=== PATIENT | male | born 1960 | race Caucasian/White ===

== ENCOUNTER 2022-04-05 09:57 | Inpatient (IN) ==
[2022-04-05] MEDS ORDERED: ACETAMINOPHEN 325 MG TABLET PO ONE (10:21)
[2022-04-05] MEDS ORDERED: ALBUTEROL/IPRATROPIUM 3 ML NEB RESP TX STA (10:22)
[2022-04-05] MEDS ORDERED: FUROSEMIDE 40 MG/4 ML VIAL IV STA (10:22)
[2022-04-05 10:50] LABS: Basophils # 0.1 10*3/uL (0.0-0.2); Basophils % 0.7 % (0.0-0.8); Eosinophils % 0.1 % (0.00-10.9); Hematocrit 30.1 VOL% (42.0-52.0); Hemoglobin 10.4 GM/DL (14.0-18.0); Immature Granulocytes % 1.2 %; Immature Granulocytes Absolute 0.16 #; Lymphocytes # 0.3 10*3/uL (1.4-4.0); Lymphocytes % 2.5 % (21.2-54.2); Mean Corpuscular HGB Conc 34.6 GM/DL (32-36); Mean Corpuscular Volume 70.2 FL (87-102); Mean Platelet Volume 9.5 FL (9.6-12.0); Monocytes # 0.6 10*3/uL (0.11-0.8); Monocytes % 4.7 % (1.7-12.7); Neutrophils % 90.8 % (38.7-73.9); Platelet Count 162 T/CUMM (130-400); Red Blood Count 4.29 MC/CUMM (3.8-5.5); Red Cell Distribution Width 16.6 % (9.3-17.3); White Blood Count 13.64 T/CUMM (4-12)
[2022-04-05 10:59] LABS: INR 1.2
[2022-04-05] MEDS ORDERED: cefTRIAXone 1,000 MG in SODIUM CHLORIDE 0.9% 100 ML IV STA (11:20)
[2022-04-05] MEDS ORDERED: ASPIRIN 325 MG TABLET PO STA (11:20)
[2022-04-05] MEDS ORDERED: AZITHROMYCIN INJ 500 MG in SODIUM CHLORIDE 0.9% 250 ML IV STA (11:20)
[2022-04-05 11:23] LABS: Albumin 2.4 G/DL (3.4-5.0); Bilirubin,Total 1.6 MG/DL (0.20-1.00); Calcium 8.2 MG/DL (8.5-10.1); Osmolality,Calculated 215.4 MOS/KG (273-304); Potassium 3.9 MMOL/L (3.5-5.1); Total Protein 6.8 G/DL (6.4-8.2)
[2022-04-05] MEDS ORDERED: SODIUM CHLORIDE 3% INJ 100 ML IV ONE (11:35)
[2022-04-05 11:43] LABS: Mucus,Urine Occasional /LPF (Occasional); RBC,Urine 1 /HPF (0-4)
[2022-04-05 11:44] LABS: Bilirubin,Urine Negative (Negative); Blood, Urine Large mg/dL (Negative); Glucose,Urine (UA) Negative (Negative); Ketones,Urine Trace mg/dL (Negative); Nitrite,Urine Negative (Negative); Protein,Urine 30 mg/dL (Negative); Urine Appearance Clear (Clear); Urine Color Yellow (Yellow); Urine Urobilinogen 0.2 eU/dL (<2.0); Urine pH 5.5 (4.5-8.0)
[2022-04-05 11:56] LABS: Arterial Base Excess iSTAT 3 MMOL/L (-2.5-2.5); Arterial Bicarbonate iSTAT 25.1 MMOL/L (20-26); Arterial O2 Saturation iSTAT 95 % (95-100); Arterial PCO2 iSTAT 30 MM HG (35-48); Arterial PO2 iSTAT 63 MM HG (80-95); Arterial Total CO2 iSTAT 26 MMO/L (23-27); Arterial pH iSTAT 7.539 (7.35-7.45)
[2022-04-05 12:06] LABS: Barbiturates Screen,Urine Negative (Negative); Benzodiazepines Screen,Urine Negative (Negative); Cannabinoid Screen,Urine Negative (Negative); Opiate Screen,Urine Negative (Negative); Phencyclidine Screen,Urine Negative (Negative)
[2022-04-05] MEDS ORDERED: ONDANSETRON 4 MG/2 ML VIAL IV PRN (12:11)
[2022-04-05] MEDS ORDERED: ALBUTEROL 2.5 MG/3 ML NEB RESP TX PRN (12:11)
[2022-04-05] MEDS ORDERED: ACETAMINOPHEN 325 MG TABLET PO PRN (12:11)
[2022-04-05] MEDS ORDERED: chlordiazePOXIDE 25 MG CAPSULE PO PRN (12:19)
[2022-04-05] MEDS ORDERED: THIAMINE 200 MG/2 ML VIAL IV SCH (12:30)
[2022-04-05 12:53] LABS: Free T4 (Free Thyroxine) 2.02 NG/DL (0.76-1.46); Thyroid Stimulating Hormone 0.379 uIU/ml (0.358-3.74)
[2022-04-05] MEDS: cefTRIAXone 1,000 MG in SODIUM CHLORIDE 0.9% 100 ML IV SCH (13:03)
[2022-04-05] MEDS: ENOXAPARIN 40 MG/0.4 ML SYRINGE SUBCUT SCH (13:13)
[2022-04-05] MEDS: ALBUTEROL/IPRATROPIUM 3 ML NEB RESP TX SCH ×2 (13:58→20:03)
[2022-04-05] MEDS ORDERED: MAGNESIUM SULF RIDER 4 GM/100 ML PREMIX IV PRN (14:51)
[2022-04-05] MEDS ORDERED: MAGNESIUM SULF RIDER 2 GM/50 ML PREMIX IV PRN (14:51)
[2022-04-05 14:58] LABS: Calcium 8.1 MG/DL (8.5-10.1); Potassium 3.5 MMOL/L (3.5-5.1)
[2022-04-05] MEDS: THIAMINE INJ 400 MG in SODIUM CHLORIDE 0.9% 100 ML IV SCH (15:22)
[2022-04-05] MEDS: FUROSEMIDE 40 MG/4 ML VIAL IV SCH (18:33)
[2022-04-05 19:00] LABS: Calcium 7.6 MG/DL (8.5-10.1); Potassium 3.8 MMOL/L (3.5-5.1)
[2022-04-05] MEDS: FOLIC ACID 1 MG TABLET PO SCH (20:47)
[2022-04-05 23:06] LABS: Osmolality,Calculated 236.9 MOS/KG (273-304); Potassium 2.9 MMOL/L (3.5-5.1)
[2022-04-05] MEDS ORDERED: POTASSIUM CHLORIDE 20 MEQ TABLET PO ONE (23:20)
[2022-04-06] MEDS: ALBUTEROL/IPRATROPIUM 3 ML NEB RESP TX SCH ×4 (00:24→19:48)
[2022-04-06] MEDS: POTASSIUM CHLORIDE 20 MEQ TABLET PO PRN ×5 (02:15→23:05)
[2022-04-06 02:32] LABS: Basophils % 0.1 % (0.0-0.8); Eosinophils % 0.1 % (0.00-10.9); Hematocrit 31.7 VOL% (42.0-52.0); Hemoglobin 10.8 GM/DL (14.0-18.0); Immature Granulocytes % 3.3 %; Immature Granulocytes Absolute 0.51 #; Lymphocytes # 0.4 10*3/uL (1.4-4.0); Lymphocytes % 2.7 % (21.2-54.2); Mean Corpuscular HGB Conc 34.1 GM/DL (32-36); Mean Corpuscular Volume 70.9 FL (87-102); Mean Platelet Volume 9.5 FL (9.6-12.0); Monocytes # 0.6 10*3/uL (0.11-0.8); Monocytes % 3.7 % (1.7-12.7); Neutrophils % 90.1 % (38.7-73.9); Platelet Count 161 T/CUMM (130-400); Red Blood Count 4.47 MC/CUMM (3.8-5.5); Red Cell Distribution Width 16.6 % (9.3-17.3); White Blood Count 15.46 T/CUMM (4-12)
[2022-04-06 02:55] LABS: Albumin 2.4 G/DL (3.4-5.0); Bilirubin,Total 1.2 MG/DL (0.20-1.00); Calcium 8.4 MG/DL (8.5-10.1); Osmolality,Calculated 233.2 MOS/KG (273-304); Potassium 2.9 MMOL/L (3.5-5.1); Total Protein 6.8 G/DL (6.4-8.2)
[2022-04-06 03:03] LABS: % Iron Saturation 4.8 % (18-50); Ferritin 352.7 ng/mL (26-388)
[2022-04-06 03:33] LABS: Hepatitis B Core IgM Quant 0.07 Index; Hepatitis B Surface Ag Quant 0.12 Index; Hepatitis B Surface Ag Result Non-Reactive (NonReactive); Hepatitis C Virus Ab Quant 0.24 Index; Hepatitis C Virus Ab Result Non-Reactive (NonReactive)
[2022-04-06] MEDS: THIAMINE INJ 400 MG in SODIUM CHLORIDE 0.9% 100 ML IV SCH ×2 (03:35→14:40)
[2022-04-06 06:53] LABS: Calcium 8.3 MG/DL (8.5-10.1); Osmolality,Calculated 236.8 MOS/KG (273-304); Potassium 3.7 MMOL/L (3.5-5.1)
[2022-04-06] MEDS: FUROSEMIDE 40 MG/4 ML VIAL IV SCH (08:35)
[2022-04-06] MEDS: PANTOPRAZOLE 40 MG TABLET PO SCH (08:35)
[2022-04-06] MEDS: AZITHROMYCIN 250 MG TABLET PO SCH (08:35)
[2022-04-06] MEDS: MULTIVITAMIN (BEROCCA) TABLET PO SCH (08:35)
[2022-04-06] MEDS ORDERED: methylPREDNISolone SOD SUC 125 MG/2 ML VIAL IV ONE (10:24)
[2022-04-06 12:06] LABS: Calcium 8.6 MG/DL (8.5-10.1); Osmolality,Calculated 246.3 MOS/KG (273-304); Potassium 3.8 MMOL/L (3.5-5.1)
[2022-04-06] MEDS: cefTRIAXone 1,000 MG in SODIUM CHLORIDE 0.9% 100 ML IV SCH (12:33)
[2022-04-06] MEDS: ENOXAPARIN 40 MG/0.4 ML SYRINGE SUBCUT SCH (12:33)
[2022-04-06] MEDS: methylPREDNISolone SOD SUC 40 MG/1 ML VIAL IV SCH (17:54)
[2022-04-06 18:14] LABS: Calcium 7.8 MG/DL (8.5-10.1); Osmolality,Calculated 245.6 MOS/KG (273-304); Potassium 3.5 MMOL/L (3.5-5.1)
[2022-04-06] MEDS ORDERED: diphenhydrAMINE CAP 25 MG CAPSULE PO PRN (20:32)
[2022-04-06] MEDS ORDERED: MELATONIN 3 MG TABLET PO PRN (20:32)
[2022-04-06] MEDS: FOLIC ACID 1 MG TABLET PO SCH (20:51)
[2022-04-06] MEDS: FERROUS SULFATE 325 MG TABLET PO SCH (20:51)
[2022-04-07] MEDS: ALBUTEROL/IPRATROPIUM 3 ML NEB RESP TX SCH ×4 (00:40→19:44)
[2022-04-07] MEDS: methylPREDNISolone SOD SUC 40 MG/1 ML VIAL IV SCH (01:47)
[2022-04-07] MEDS: THIAMINE INJ 400 MG in SODIUM CHLORIDE 0.9% 100 ML IV SCH (01:48)
[2022-04-07 02:05] LABS: Calcium 8.7 MG/DL (8.5-10.1); Osmolality,Calculated 245.5 MOS/KG (273-304); Potassium 4.3 MMOL/L (3.5-5.1)
[2022-04-07 05:21] LABS: Basophils # 0.1 10*3/uL (0.0-0.2); Basophils % 0.7 % (0.0-0.8); Eosinophils % 0.1 % (0.00-10.9); Hematocrit 32.9 VOL% (42.0-52.0); Immature Granulocytes % 2.7 %; Immature Granulocytes Absolute 0.41 #; Lymphocytes # 0.4 10*3/uL (1.4-4.0); Lymphocytes % 2.7 % (21.2-54.2); Mean Corpuscular HGB Conc 33.4 GM/DL (32-36); Mean Corpuscular Volume 72.3 FL (87-102); Mean Platelet Volume 9.1 FL (9.6-12.0); Monocytes # 0.4 10*3/uL (0.11-0.8); Monocytes % 2.6 % (1.7-12.7); Neutrophils % 91.2 % (38.7-73.9); Platelet Count 192 T/CUMM (130-400); Red Blood Count 4.55 MC/CUMM (3.8-5.5); Red Cell Distribution Width 16.9 % (9.3-17.3); White Blood Count 14.97 T/CUMM (4-12)
[2022-04-07 05:39] LABS: Calcium 8.8 MG/DL (8.5-10.1); Osmolality,Calculated 251.1 MOS/KG (273-304); Potassium 4.3 MMOL/L (3.5-5.1)
[2022-04-07 05:40] LABS: Albumin 2.2 G/DL (3.4-5.0); Bilirubin,Total 0.6 MG/DL (0.20-1.00); Calcium 8.8 MG/DL (8.5-10.1); Osmolality,Calculated 248.2 MOS/KG (273-304); Total Protein 7.3 G/DL (6.4-8.2)
[2022-04-07 05:45] LABS: Band Neutrophils 1 % (0-10); Lymphocytes 1 % (20-55); Total Cells Counted 100
[2022-04-07 05:46] LABS: Platelet Estimate Adequate
[2022-04-07] MEDS: MULTIVITAMIN (BEROCCA) TABLET PO SCH (10:14)
[2022-04-07] MEDS: FERROUS SULFATE 325 MG TABLET PO SCH ×2 (10:14→20:12)
[2022-04-07] MEDS: predniSONE 20 MG TABLET PO SCH (10:14)
[2022-04-07] MEDS: PANTOPRAZOLE 40 MG TABLET PO SCH (10:14)
[2022-04-07] MEDS: AZITHROMYCIN 250 MG TABLET PO SCH (10:14)
[2022-04-07] MEDS: FUROSEMIDE 40 MG/4 ML VIAL IV SCH (10:15)
[2022-04-07] MEDS: THIAMINE 100 MG TABLET PO SCH ×2 (10:18→20:12)
[2022-04-07] MEDS: cefTRIAXone 1,000 MG in SODIUM CHLORIDE 0.9% 100 ML IV SCH (12:46)
[2022-04-07] MEDS: ENOXAPARIN 40 MG/0.4 ML SYRINGE SUBCUT SCH (12:47)
[2022-04-07 13:00] LABS: Osmolality,Calculated 251.9 MOS/KG (273-304); Potassium 4.5 MMOL/L (3.5-5.1)
[2022-04-07 18:51] LABS: Calcium 9.3 MG/DL (8.5-10.1); Osmolality,Calculated 255.8 MOS/KG (273-304); Potassium 4.2 MMOL/L (3.5-5.1)
[2022-04-07] MEDS: FOLIC ACID 1 MG TABLET PO SCH (20:12)
[2022-04-08] MEDS: ALBUTEROL/IPRATROPIUM 3 ML NEB RESP TX SCH ×4 (00:10→19:12)
[2022-04-08 05:59] LABS: Basophils # 0.1 10*3/uL (0.0-0.2); Basophils % 0.5 % (0.0-0.8); Eosinophils % 0.1 % (0.00-10.9); Hematocrit 33.8 VOL% (42.0-52.0); Immature Granulocytes % 4.4 %; Immature Granulocytes Absolute 0.57 #; Lymphocytes # 1.2 10*3/uL (1.4-4.0); Lymphocytes % 9.3 % (21.2-54.2); Mean Corpuscular HGB Conc 32.5 GM/DL (32-36); Mean Corpuscular Volume 75.1 FL (87-102); Mean Platelet Volume 9.1 FL (9.6-12.0); Monocytes # 1.3 10*3/uL (0.11-0.8); Monocytes % 10.2 % (1.7-12.7); Neutrophils % 75.5 % (38.7-73.9); Platelet Count 251 T/CUMM (130-400); Red Cell Distribution Width 17.6 % (9.3-17.3); White Blood Count 12.96 T/CUMM (4-12)
[2022-04-08 06:20] LABS: % Iron Saturation 24.4 % (18-50); Albumin 2.3 G/DL (3.4-5.0); Bilirubin,Total 0.6 MG/DL (0.20-1.00); Calcium 8.9 MG/DL (8.5-10.1); Ferritin 336.5 ng/mL (26-388); Osmolality,Calculated 262.2 MOS/KG (273-304); Potassium 3.7 MMOL/L (3.5-5.1); Total Protein 7.1 G/DL (6.4-8.2)
[2022-04-08 06:23] LABS: Band Neutrophils 1 % (0-10); Hypochromia 1+; Lymphocytes 7 % (20-55); Microcytosis 1+; Myelocytes 1 %; Target Cells Few; Total Cells Counted 100
[2022-04-08 06:24] LABS: Platelet Estimate Normal
[2022-04-08 06:28] LABS: Folate > 24.00 NG/ML (5.38-24.0); Vitamin B12 > 2000 PG/ML (211-911)
[2022-04-08] MEDS: MULTIVITAMIN (BEROCCA) TABLET PO SCH (08:24)
[2022-04-08] MEDS: THIAMINE 100 MG TABLET PO SCH ×2 (08:24→20:40)
[2022-04-08] MEDS: predniSONE 20 MG TABLET PO SCH (08:24)
[2022-04-08] MEDS: AZITHROMYCIN 250 MG TABLET PO SCH (08:24)
[2022-04-08] MEDS: PANTOPRAZOLE 40 MG TABLET PO SCH (08:25)
[2022-04-08] MEDS: FERROUS SULFATE 325 MG TABLET PO SCH ×2 (08:25→20:40)
[2022-04-08] MEDS: FUROSEMIDE 40 MG/4 ML VIAL IV SCH (08:25)
[2022-04-08] MEDS: cefTRIAXone 1,000 MG in SODIUM CHLORIDE 0.9% 100 ML IV SCH (12:05)
[2022-04-08] MEDS: ENOXAPARIN 40 MG/0.4 ML SYRINGE SUBCUT SCH (12:06)
[2022-04-08] MEDS: FOLIC ACID 1 MG TABLET PO SCH (20:40)
[2022-04-09] MEDS: ALBUTEROL/IPRATROPIUM 3 ML NEB RESP TX SCH ×2 (00:23→06:59)
[2022-04-09 06:04] LABS: Basophils # 0.1 10*3/uL (0.0-0.2); Basophils % 0.8 % (0.0-0.8); Eosinophils % 0.4 % (0.00-10.9); Hemoglobin 10.8 GM/DL (14.0-18.0); Immature Granulocytes % 6.7 %; Immature Granulocytes Absolute 0.61 #; Lymphocytes # 1.4 10*3/uL (1.4-4.0); Lymphocytes % 15.4 % (21.2-54.2); Mean Corpuscular HGB Conc 31.8 GM/DL (32-36); Mean Corpuscular Volume 74.9 FL (87-102); Mean Platelet Volume 9.1 FL (9.6-12.0); Monocytes % 10.5 % (1.7-12.7); Neutrophils % 66.2 % (38.7-73.9); Platelet Count 270 T/CUMM (130-400); Red Blood Count 4.54 MC/CUMM (3.8-5.5); Red Cell Distribution Width 17.7 % (9.3-17.3); White Blood Count 9.13 T/CUMM (4-12)
[2022-04-09 06:25] LABS: Albumin 2.2 G/DL (3.4-5.0); Bilirubin,Total 0.5 MG/DL (0.20-1.00); Calcium 8.7 MG/DL (8.5-10.1); Osmolality,Calculated 261.1 MOS/KG (273-304); Potassium 3.3 MMOL/L (3.5-5.1); Total Protein 6.5 G/DL (6.4-8.2)
[2022-04-09 06:36] LABS: Band Neutrophils 1 % (0-10); Eosinophils 2 % (0-10); Lymphocytes 17 % (20-55); Platelet Estimate Adequate; Total Cells Counted 100
[2022-04-09 06:37] LABS: Hypochromia Slight; Microcytosis Slight
[2022-04-09] MEDS ORDERED: POTASSIUM CHLORIDE 20 MEQ TABLET PO ONE (07:15)
[2022-04-09] MEDS: AZITHROMYCIN 250 MG TABLET PO SCH (08:08)
[2022-04-09] MEDS: MULTIVITAMIN (BEROCCA) TABLET PO SCH (08:08)
[2022-04-09] MEDS: PANTOPRAZOLE 40 MG TABLET PO SCH (08:08)
[2022-04-09] MEDS: FERROUS SULFATE 325 MG TABLET PO SCH (08:08)
[2022-04-09] MEDS: predniSONE 20 MG TABLET PO SCH (08:08)
[2022-04-09] MEDS: THIAMINE 100 MG TABLET PO SCH (08:08)
[2022-04-09 09:08] VITALS: BP 152/86
== END 2022-04-09 10:20 | disposition home or self-care (01) | DRG 643 ==
LOC: N.ED 09:57 → N.CC 12:28 → SUATTDRO 12:28 → N.CC 14:32 → N.2E 04-07 21:28
PROVIDERS: ADMIT Family Medicine; ATTEND Internal Medicine